=== PATIENT | male | born 1955 | race Caucasian/White ===

== ENCOUNTER 2017-09-11 21:24 | Inpatient (IN) | payer SELFPAY ==
[~2017-09-11] VITALS: Ht 185.4 cm; Wt 88.5 kg
[2017-09-11 21:45] VITALS: BP 152/91
--- NOTE | 2017-09-11 21:45 | NUR ---
To OF chair.
[2017-09-11] MEDS ORDERED: HYDROcodone/APAP 5/325 MG 1 TAB TAB PO ONE (22:45)
[2017-09-11] MEDS ORDERED: oxyCODONE/APAP 5/325 MG 1 TAB TAB PO ONE (23:15)
--- NOTE | 2017-09-11 23:30 | NUR ---
Pt is sitting in chair. Calm, cooperative. Denies complaints.
[2017-09-12 00:09] LABS: ANION GAP 11.1 (8-16); ASPARTATE AMINOTRANSFERASE 11 U/L (15-37); CARBON DIOXIDE 29.6 mmol/L (21-32); CHLORIDE 99 mmol/L (98-107); CREATININE 0.7 mg/dL (0.7-1.3); GFR ARICAN-AMERICAN 146 mL/min (>90); GLUCOSE 182 mg/dL (74-106); POTASSIUM 3.7 mmol/L (3.5-5.1); SALICYLATE 4.2 mg/dL (2.8-20.0); SODIUM SERUM 136 mmol/L (136-145); TOTAL BILIRUBIN 0.3 mg/dL (0.0-1.0); UREA NITROGEN, BLOOD 6 mg/dL (7-18)
[2017-09-12 00:12] LABS: ACETAMINOPHEN < 0.5 ug/ml (10-30)
[2017-09-12 00:22] LABS: HEMATOCRIT 45.9 % (36-52); HEMOGLOBIN 15.5 g/dL (12.0-18.0); MEAN CORPUSCULAR HEMOGLOBIN 32 pg (27-31); MEAN CORPUSCULAR HGB CONC 34 g/dL (33-37); MEAN CORPUSCULAR VOLUME 95 fL (80-94); PLATELET COUNT (AUTO) 578 K/uL (140-450); RED BLOOD CELL COUNT(AUTO) 4.84 MIL/uL (4.20-6.10); RED CELL DISTRIBUTION WIDTH 12.6 % (11.6-13.7); WHITE BLOOD COUNT (AUTO) 13.5 K/uL (4.8-10.8)
[2017-09-12 00:24] LABS: EOSINOPHILS % (MANUAL) 1 % (0-4); LYMPHOCYTES % (MANUAL) 29 % (20-46); MONOCYTES % (MANUAL) 4 % (5-12)
--- NOTE | 2017-09-12 01:30 | NUR ---
Sitting in chair. No changes.
--- NOTE | 2017-09-12 01:50 | NUR ---
Ena bar in [facility] [place] - 09/12/17 at 0152 by [facility] To OF .
[2017-09-12] MEDS ORDERED: oxyCODONE/APAP 5/325 MG 1 TAB TAB ONE (02:08)
[2017-09-12 02:28] LABS: BARBITURATE, URINE NEG. ng/ml (NEG <=200); BENZODIAZEPINE, URINE NEG. ng/mL (NEG <=200); CANNABINOID, URINE POS. ng/mL (NEG <=50); COCAINE, URINE NEG. ng/mL (NEG <=300); OPIATE, URINE POS. ng/mL (NEG <=2000); PHENCYCLIDINE SCREEN,URINE NEG. ng/mL (NEG <=25)
--- NOTE | 2017-09-12 03:30 | NUR ---
Sleeping in chair. No changes.
[2017-09-12] MEDS ORDERED: ACETAMINOPHEN 325 MG TAB PO PRN (04:30)
[2017-09-12] MEDS ORDERED: oxyCODONE/APAP 5/325 MG 1 TAB TAB PO ONE (04:30)
[2017-09-12] MEDS ORDERED: ONDANSETRON 4 MG/2 ML VIAL IVP PRN (04:30)
--- NOTE | 2017-09-12 05:00 | NUR ---
Patient will be admitted to care of [place]. Admited to [facility]. Will go to room 109A. Belongings list completed. Report to CECILE Salvador.
--- NOTE | 2017-09-12 05:05 | NUR ---
ADMITTED THIS 62 YEAR OLD MALE FROM ER WITH CC OF SUICIDAL IDEATION, AMBULATED TO BED WITH STEADY GAIT, ASSESSMENT DONE, VITAL SIGNS STABLE, NOTICED LEFT EYES BRUISE AND LEFT FOREHEAD SCAB, COMPLAINING OF HEADACHE AND BACK PAIN, WILL MEDICATE PRN, MADE COMFORTABLE ON BED, MONITORED CLOSELY.
--- NOTE | 2017-09-12 05:40 | NUR ---
CXR DONE, NEW IV LINE INSERTED TO LEFT HAND #22, WILL START ON IVF, ALL NEEDS ATTENDED.
[2017-09-12] MEDS: NACL 0.9% 1,000 ML IV SCH ×3 (06:15→20:01)
--- NOTE | 2017-09-12 06:30 | NUR ---
PT SLEEPING, EASILY AROUSABLE, NO SUICIDAL IDEATION AT THIS TIME, IVF INFUSING WELL, MONITORED CLOSELY.
--- NOTE | 2017-09-12 07:17 | NUR ---
PT SLEEPING, NO SIGNS OF DISTRESS, REPORT GIVEN TO CECILE JEROME FOR CONTINUITY OF CARE.
[2017-09-12 07:44] LABS: PROTHROMBIN TIME 9.7 secs (10.8-13.4)
[2017-09-12 08:00] VITALS: BP 135/78
--- NOTE | 2017-09-12 08:00 | NUR ---
RECEIVED REPORT FROM CECILE HUTTON AT BEDSIDE. PATIENT IS ALERT AWAKE ORIENTED X4, NOT IN ANY DISTRESS NOTED. INITIAL ASSESSMENT INITIATED. WITH IVF ON GOING AND INFUSING WELL. ON MONITOR SHOWS SR WITH FREQUENT PAC'S. ON ONE TO ONE SITTER. DENIES ON HURTING HIMSELF HE JUST WANT TO REST AT THIS TIME. CALL LIGHT WITHIN REACH. WILL CONTINUE TO MONITOR.
[2017-09-12] MEDS: DOCUSATE SODIUM 100 MG GELCAP PO SCH ×2 (08:45→20:01)
[2017-09-12] MEDS: DULoxetine 30 MG CAPDR PO SCH (08:45)
[2017-09-12 09:17] LABS: APPEARANCE,URINE CLEAR (CLEAR); BILIRUBIN,URINE NEGATIVE (NEGATIVE); BLOOD, URINE NEGATIVE (NEGATIVE); COLOR,URINE YELLOW (YELLOW); LEUKOCYTE ESTERASE ,URINE NEGATIVE (NEGATIVE); NITRITE, URINE NEGATIVE (NEGATIVE); PH,URINE 6.5 (5.0-9.0); UGLUCOSE TRACE (NEGATIVE)
[2017-09-12 09:24] LABS: RBC,URINE NONE SEEN /HPF (0-5); WBC,URINE 0-5 (RARE) /HPF (0-5)
--- NOTE | 2017-09-12 09:42 | NUR ---
LAB CALLED FOR CRITICAL VALUE, LACTIC ACID 3.0, CALLED DR. TONEY AND MADE AWARE.
[2017-09-12] MEDS ORDERED: LACTULOSE 20 GM/30 ML UDC PO SCH (11:04)
[2017-09-12 11:53] VITALS: BP 147/75
--- NOTE | 2017-09-12 14:54 | NUR ---
RECEIVED HANDOFF REPORT FROM CHARGE NURSE QUEENIE. PATIENT A&OX4. PATIENT DENIES PAIN. PATIENT DENIES THOUGHTS OF SUICIDE. IV SITE PATENT AND INTACT. NO SIGNS OR SYMPTOMS OF ACUTE DISTRESS NOTED. SAFETY MEASURES ENSURED. 1:1 SITTER AT BEDSIDE. WILL CONTINUE TO MONITOR.
[2017-09-12] MEDS ORDERED: HYDROcodone/APAP 5/325 MG 1 TAB TAB PO PRN (14:55)
--- NOTE | 2017-09-12 15:00 | NUR ---
REPORT GIVEN TO CECILE PRINCE AT BEDSIDE FOR CONTINUITY OF CARE. IN STABLE CONDITION.
[2017-09-12 16:00] VITALS: BP 159/83
--- NOTE | 2017-09-12 16:27 | NUR ---
IN TO SEE PATIENT.
--- NOTE | 2017-09-12 19:25 | NUR ---
ENDORSED PLAN OF CARE TO PM CECILE WOLFE FOR CONTINUITY FO CARE.
[2017-09-12] MEDS ORDERED: LISINOPRIL 5 MG TAB PO SCH (19:35)
[2017-09-12] MEDS ORDERED: HYDROcodone/APAP 10/325 MG 1 TAB TAB PO PRN (19:35)
--- NOTE | 2017-09-12 19:35 | NUR ---
RECEIVED REPORT FROM AM NURSE. PT RESTING IN BED, AOX4, AMBULATORY, ABLE TO VERBALIZE NEEDS. PT DENIES SUICIDAL IDEATION, PT IS CLEARED FROM 5150 BY PSYCH CONSULT. PT C/O HEADACHE AND BACK PAIN, REPORTS THAT NORCO 5/325 EARLIER THIS AFTERNOON WAS NOT EFFECTIVE, DR DENSON MADE AWARE. DISCUSSED WITH THAT PT'S BP IS ALSO 183/85 AND 154/91, HR 91. ORDERS PENDING, WILL CARRY OUT. DISCUSSED AND REVIEWED PLAN OF CARE WITH PT, PT VERBALIZED UNDERSTANDING. ALL NEEDS MET. IVF INFUSING WELL. SAFETY MEASURES ENSURED. CALL LIGHT WITHIN REACH. WILL CONTINUE TO MONITOR.
[2017-09-12 20:00] VITALS: BP 183/85
[2017-09-12 20:01] VITALS: BP 154/91
[2017-09-12] MEDS: LACTULOSE 20 GM/30 ML UDC PO SCH (20:01)
--- NOTE | 2017-09-12 20:05 | NUR ---
PT C/O HEADACHE AND BACK PAIN, ADMINISTERED NORCO 10/325 PO PRN ORDERED WITH EDUCATION. ADMINISTERED REMAINING DUE MEDICATIONS WITH EDUCATION. PT VERBALIZED UNDERSTANDING, TOLERATED MED WELL. ALL NEEDS MET. IVF INFUSING WELL. SAFETY MEASURES ENSURED. CALL LIGHT WITHIN REACH. WILL CONTINUE TO MONITOR.
[2017-09-12 23:36] LABS: FREE T4 (FREE THYROXINE) 0.95 ng/dL (0.76-1.46); MAGNESIUM 2.4 mg/dL (1.8-2.4); PHOSPHORUS 2.9 mg/dL (2.5-4.9); THYROID STIMULATING HORMONE 0.39 uIU/mL (0.34-3.74)
[2017-09-13] VITALS (9 sets, daily range): BP systolic 140–197; BP diastolic 68–95
[2017-09-13] MEDS ORDERED: ENALAPRILAT 2.5 MG/2 ML VIAL IVP PRN (00:05)
[2017-09-13] MEDS: HYDROcodone/APAP 10/325 MG 1 TAB TAB PO PRN ×3 (00:12→12:59)
--- NOTE | 2017-09-13 00:15 | NUR ---
CALLED DR DENSON, MADE AWARE OF PT'S ELEVATED BP 197/78 AND 179/78, HR 85. ALSO MADE MD AWARE OF PT C/O PERSISTENT HEADACHE AND BACK PAIN, PT REQUESTING TO HAVE NORCO 10/325 PO PRN Q4H INSTEAD OF Q6H. ADMINISTERED ENALAPRIL 1.25MG IVP PRN ORDERED WITH EDUCATION, WILL REASSESS BP. ADMINISTERED NORCO 10/325 PO PRN WITH EDUCATION, SEE PAIN ASSESSMENT, WILL MONITOR. PT VERBALIZED UNDERSTANDING, TOLERATED MED WELL. EXPLAINED TO PT THAT MD IS REQUESTING TO OBTAIN MEDICAL RECORDS FOR PT'S RECENT HOSPITALIZATION FROM [facility]. PT VERBALIZED UNDERSTANDING, SIGNED AUTHORIZATION FOR USE OR DISCLOSURE OF HEALTH INFORMATION. ALL NEEDS MET. IVF INFUSING WELL. SAFETY MEASURES ENSURED. WILL CONTINUE TO MONITOR.
[2017-09-13] MEDS: NACL 0.9% 1,000 ML IV SCH (01:13)
--- NOTE | 2017-09-13 02:40 | NUR ---
NOTIFIED BY SENIOR PARTNER THAT PT HAS 2ND DEGREE AVB ON TELE; PT IS SLEEPING, AROUSABLE TO NAME, PT DENIES CHEST PAIN, SOB OR S/S OF ACUTE DISTRESS. BP 154/76 AND 145/72, HR 66, RR 20, SPO2 96% ON ROOM AIR. DR DENSON MADE AWARE, TO ORDER EKG IN THE AM.
[2017-09-13] MEDS ORDERED: ISOSORBIDE DINITRATE 10 MG TAB PO SCH (04:00)
--- NOTE | 2017-09-13 04:25 | NUR ---
CALLED DR DENSON, MADE MD AWARE OF ELEVATED BP 181/95 AND 177/95, HR 66 AND THAT VASOTEC PRN IS NOT DUE YET. ORDERS RECEIVED. ADMINISTERED ISORDIL 5MG PO ONE TIME WITH EDUCATION ORDERED AT THIS TIME. PT VERBALIZED UNDERSTANDING, TOLERATED MED WELL. ALL NEEDS MET. IVF INFUSING WELL. SAFETY MEASRURES ENSURED. WILL CONTINUE TO MONITOR.
--- NOTE | 2017-09-13 07:10 | NUR ---
ENDORSED PLAN OF CARE TO AM NURSE. CONDITION STABLE.
[2017-09-13 07:33] LABS: BASOPHILS # (AUTO) 0.3 K/uL (0.00-0.22); BASOPHILS % (AUTO) 2.2 % (0.0-2.0); EOSINOPHILS # (AUTO) 0.2 K/uL (0-0.4); EOSINOPHILS % (AUTO) 1.4 % (0.0-4.0); HEMATOCRIT 39.7 % (36-52); HEMOGLOBIN 13.6 g/dL (12.0-18.0); LYMPHOCYTES # (AUTO) 3.2 K/uL (2.0-11.5); LYMPHOCYTES % (AUTO) 27.4 % (20.5-51.1); MEAN CORPUSCULAR HEMOGLOBIN 32 pg (27-31); MEAN CORPUSCULAR HGB CONC 34 g/dL (33-37); MEAN CORPUSCULAR VOLUME 94 fL (80-94); MONOCYTES # (AUTO) 0.9 K/uL (0.8-1.0); MONOCYTES % (AUTO) 8.1 % (1.7-9.3); NEUTROPHILS % (AUTO) 60.9 % (42.2-75.2); PLATELET COUNT (AUTO) 517 K/uL (140-450); RED BLOOD CELL COUNT(AUTO) 4.23 MIL/uL (4.20-6.10); RED CELL DISTRIBUTION WIDTH 12.6 % (11.6-13.7); WHITE BLOOD COUNT (AUTO) 11.6 K/uL (4.8-10.8)
[2017-09-13 07:49] LABS: CREATININE 0.7 mg/dL (0.7-1.3)
--- NOTE | 2017-09-13 08:00 | NUR ---
RECEIVED REPORT FROM AIDEN HUBER FOR CONTINUITY OF CARE. PATIENT AWAKE, A/OX4 NO S/S OF RESP DISTRESS NOTED ABLE TO MAKE NEEDS KNOWN . IV SITE LEFT FOREARM GAUGE 22 INTACT AND PATENT. IVF INFUSING WELL PLAN OF CARE DISCUSSED WITH THE PATIENT VITALS STABLE WILL CONTINUE TO MONITOR.
[2017-09-13 08:01] LABS: MAGNESIUM 2.1 mg/dL (1.8-2.4); PHOSPHORUS 2.4 mg/dL (2.5-4.9)
[2017-09-13] MEDS ORDERED: KETOROLAC 15 MG/ML VIAL IVP PRN (08:55)
[2017-09-13] MEDS ORDERED: LISINOPRIL 5 MG TAB PO SCH (09:00)
--- NOTE | 2017-09-13 09:00 | NUR ---
DUE MEDS GIVEN TOLERATED WELL. C/O PAIN MEDICATED MEDICATED WITH TORADOL IVP AT THIS TIME.
[2017-09-13] MEDS: DULoxetine 30 MG CAPDR PO SCH (09:22)
[2017-09-13] MEDS: LACTULOSE 20 GM/30 ML UDC PO SCH (09:22)
[2017-09-13] MEDS: DOCUSATE SODIUM 100 MG GELCAP PO SCH (09:22)
--- NOTE | 2017-09-13 09:22 | NUR ---
PATIENT HAS BEEN SCREENED AND CATEGORIZED LOW NUTRITION RISK. PATIENT WILL BE SEEN WITHIN 7 DAYS OF ADMISSION. 09/18/[address]
--- NOTE | 2017-09-13 13:07 | NUR ---
C/O PAIN MEDICATED WITH NORCO ONE TAB AT THIS TIME.
[2017-09-13] MEDS ORDERED: LISI-420 PO (13:55)
[2017-09-13] MEDS ORDERED: DULO30EC PO (13:55)
--- NOTE | 2017-09-13 16:00 | NUR ---
DISCHARGE INSTRUCTION AND PRESCRIPTION GIVEN VERBALIZED UNDERSTANDING, SUPPLIER ENGINEER FREDRICK EXPLAIN AND GAVE ALL THE RESOURCES OF LONG TERM , PT WANTED TO GO TO [facility] [place] ,BUS PASS AND ADDRESS GIVEN VERBALIZED UNDERSTANDING.
== END 2017-09-13 16:35 | disposition home or self-care (01) | DRG 917 ==
LOC: MED 21:24 → MTU 09-12 04:16
PROVIDERS: ADMIT Student in an Organized Health Care Education/Training Program; ATTEND Student in an Organized Health Care Education/Training Program
DX: T40.601A Poisoning by unspecified narcotics, accidental (unintentional), initial encounter (principal); G92 Toxic encephalopathy; R65.10 Systemic inflammatory response syndrome (SIRS) of non-infectious origin without acute organ dysfunction; K72.90 Hepatic failure, unspecified without coma; E83.39 Other disorders of phosphorus metabolism; F32.9 Major depressive disorder, single episode, unspecified; I10 Essential (primary) hypertension; F43.23 Adjustment disorder with mixed anxiety and depressed mood; Z59.0 Homelessness; Z87.891 Personal history of nicotine dependence; F41.9 Anxiety disorder, unspecified; Y92.89 Other specified places as the place of occurrence of the external cause
CPT/HCPCS: 36415; 76705; 80048; 80053; 80305; 81001; 82140; 83036; 83605; 83735; 83880; 84100; 84439; 84443; 84484; 85025; 85610; 85730; 87081; 87086; 93005; 99285; G0480; G0482; J1885; J3490; J7030; Q0092